=== PATIENT | male | born 1960 | race Caucasian/White ===

== ENCOUNTER 2018-08-21 00:28 | Outpatient (CLI) | payer BC ==
[2018-08-21 14:04] LABS: Hemoglobin 14.5 g/dL (14.0-18.0); Mean Corpuscular HGB CONC 32.6 g/dL (32.0-36.0); Mean Corpuscular Hemoglobin 32.3 pg (27.0-31.0); Mean Platelet Volume 7.7 fL (7.4-10.4); Platelet Count 200 thou/uL (130-400); Red Blood Cell (RBC) Count 4.49 mill/uL (4.70-6.10); White Blood Cell (WBC) Count 5.5 thou/uL (4.8-10.8)
[2018-08-21 14:13] LABS: Bilirubin Negative (Negative); Blood, Urine Negative (Negative); Clarity CLEAR (Clear); Glucose, Urine (Dipstick) 500 mg/dL (Negative); Leukocyte Negative (Negative); Nitrite Negative (Negative); Protein, Urine (Dipstick) Negative (Neg-Trace); Specific Gravity, Urine 1.017 (1.002-1.036); Urobilinogen 0.2 mg/dL (0.2-1.0)
[2018-08-21 14:19] LABS: Bacteria/HPF None Seen HPF (None Seen); Hyaline Casts/LPF 0-3 HYALINE CAST LPF (0-3 Hyaline); RBC/HPF 0-3 HPF (0-3); Squamous Epithelial None Seen HPF (0-3); WBC/HPF 0-3 HPF (0-3)
[2018-08-21 14:21] LABS: Anion Gap 10 mmol/L (10-20); BUN (Urea Nitrogen) 13 mg/dL (8.4-25.7); Calc. Creatinine Clearance 0 mL/min (70-130); Calcium 9.4 mg/dL (7.8-10.44); Carbon Dioxide 26 mmol/L (22-29); Chloride 104 mmol/L (98-107); Estimated GFR-MDRD Greater than 90; Glucose 219 mg/dL (70-105); Potassium 3.7 mmol/L (3.5-5.1); Sodium 136 mmol/L (136-145)
== END 2018-08-21 00:29 | disposition home or self-care (01) ==
LOC: LABBT 00:28
PROVIDERS: ATTEND Orthopaedic Surgery
DX: Z01.818 Encounter for other preprocedural examination (principal); Z96.652 Presence of left artificial knee joint
CPT/HCPCS: 80048; 81001; 85027; 85610; 86850; 86900; 86901; 87081; 93005; 93010

== ENCOUNTER 2018-08-21 13:00 | Inpatient (IN) | payer BC ==
--- NOTE | 2018-08-21 11:27 | HP ---
HISTORY OF PRESENT ILLNESS: This patient is a 58-year-old male with a long history of progressive degenerative arthritis of the left knee. He has had no recent injury. He has had previous arthroscopic surgery in the past with partial meniscectomies. Over the past several years, he has noticed progressive pain, which has persisted despite measures restricting activities, anti-inflammatory medications, and several cortisone injections. The pain is not interfering with day-to-day activities including walking, getting dressed, sleeping, and working. PAST HISTORY: The patient has had previous right total knee replacement in 12/2015. This was complicated by postoperative stiffness, which required manipulation and use of continuous passive motion machine, he subsequently had satisfactory results. He has no major medical problems. CURRENT MEDICATIONS: Include multivitamins, baby aspirin, and meloxicam. ALLERGIES: HE IS ALLERGIC TO PENICILLIN, WHICH CAUSES A RASH. FAMILY HISTORY: Otherwise unremarkable. SOCIAL HISTORY: Otherwise unremarkable. REVIEW OF SYSTEMS: Otherwise unremarkable. PHYSICAL EXAMINATION: GENERAL: A healthy male. HEENT: Unremarkable. NECK: Supple. CHEST: Clear. HEART: Regular rate and rhythm. ABDOMEN: Soft and nontender. RECTAL AND GENITAL: Deferred. EXTREMITIES: Pertinent findings related to his left knee. There is mild varus. There is medial joint line tenderness and a palpable Ivy cyst. There is crepitus with range of motion. There are healed arthroscopy puncture sites. Range of motion is 5 to 90 degrees and crepitus with range of motion. There is a left antalgic gait. There is no instability. Distal pulses are 2+. NEUROVASCULAR: Intact. DIAGNOSTIC STUDIES: X-rays of the left knee reveal [id number] collapse medially with tricompartment degenerative arthritis and a posterior osteocartilaginous loose body, probably within a Ivy cyst. IMPRESSION: 1. Posttraumatic degenerative arthritis, left knee. 2. Status post right total knee replacement. PLAN: Left total knee replacement. Because of his previous history with stiffness of the right knee, we will begin aggressive range of motion exercises and use of a continuous passive motion machine immediately in the postoperative period on his left knee. The nature of surgery, length, recovery, and potential complications such as infection, loss of motion, incomplete relief, thromboembolic phenomena, possible transfusion, and need for revision have been discussed in detail with the patient and his . Job ID: [id number]
[2018-08-25] MEDS ORDERED: Tranexamic Acid 1,000 MG/10 ML VIAL ONE ×2 (07:09→14:15)
[2018-08-25] MEDS ORDERED: Levofloxacin 500 mg/D5W 100 ml Premix Bag ONE (07:09)
[2018-08-25] MEDS ORDERED: Sodium Chloride 0.9% 100 ML ONE (07:09)
[2018-08-25] MEDS ORDERED: Vancomycin HCl 1.5 GM in Sodium Chloride 0.9% 250 ML 300 ML IVPB SCH ×2 (07:15→21:00)
[2018-08-25] MEDS ORDERED: Midazolam HCl 2 mg/2 ml Vial ONE (08:40)
[2018-08-25] MEDS ORDERED: Fentanyl 100 MCG/2 ML VIAL ONE ×3 (08:40→13:04)
[2018-08-25] MEDS ORDERED: Zolpidem Tartrate 5 MG TAB PO PRN ×2 (09:14→13:55)
[2018-08-25] MEDS ORDERED: traMADol HCl 50 MG TAB PO PRN ×2 (09:14→13:55)
[2018-08-25] MEDS ORDERED: Ondansetron PF 4 MG/2 ML Vial IVP PRN ×2 (09:14→13:55)
[2018-08-25] MEDS ORDERED: Fentanyl 100 MCG/2 ML VIAL IV PRN (09:14)
[2018-08-25] MEDS ORDERED: Promethazine HCl 25 MG/ML VIAL IM PRN ×2 (09:14→10:50)
[2018-08-25] MEDS ORDERED: HYDROcodone/Acetaminophen 10/325 mg Tablet PO PRN ×3 (09:14→13:55)
[2018-08-25] MEDS ORDERED: Ropivacaine HCl/PF 250 ML in Premix Bag 1 BAG NERVE BLCK SCH (09:14)
[2018-08-25] MEDS ORDERED: Bupivacaine/Epinephrine 0.25% 30 ML VIAL ONE (09:49)
[2018-08-25] MEDS ORDERED: PACU-Morphine 4MG/ML VIAL SLOW IVP PRN (10:50)
[2018-08-25] MEDS ORDERED: Ondansetron HCl/PF 4 MG/2 ML Vial IVP PRN (10:50)
[2018-08-25] MEDS ORDERED: Promethazine HCl 25 MG/ML VIAL SLOW IVP PRN ×2 (10:50→13:55)
[2018-08-25] MEDS ORDERED: HYDROmorphone 2 MG/ML VIAL SLOW IVP PRN (10:50)
[2018-08-25] MEDS ORDERED: Meperidine HCl/PF 25 MG/ML VIAL ONE (12:28)
[2018-08-25] MEDS ORDERED: Tranexamic Acid 1,000 MG in Sodium Chloride 0.9% 100 ML IVPB SCH ×2 (12:30→13:55)
[2018-08-25] MEDS ORDERED: Acetaminophen 325 MG TAB PO PRN (13:55)
[2018-08-25] MEDS ORDERED: Fentanyl 100 MCG/2 ML VIAL SLOW IVP PRN ×2 (13:55)
[2018-08-25] MEDS ORDERED: Ketorolac Tromethamine 30 MG/ML VIAL IVP SCH (14:00)
--- NOTE | 2018-08-25 14:01 | RAD ---
LEFT KNEE RADIOGRAPHS 2 VIWS: DATE: 08/25/2018. PROVIDED CLINICAL HISTORY: Postop. FINDINGS: Postoperative changes of left total knee arthroplasty are demonstrated. There is no evidence for fra cture or other acute osseous abnormality. Ossific focus posterior to the knee joint presumably refle cts intraarticular body within Ivy's cyst. Postoperative soft tissue gas is noted. IMPRESSION: As above. POS: [facility]
[2018-08-25] MEDS ORDERED: Aspirin 81 mg Enteric Coated Tablet PO SCH (14:15)
[2018-08-25] MEDS ORDERED: Ascorbic Acid 500 mg Chewable Tablet PO SCH (14:15)
[2018-08-25] MEDS ORDERED: Ropivacaine 0.5% HCl/PF (150 MG/30 ML VIAL) ONE (14:43)
[2018-08-25] MEDS ORDERED: Ropivacaine 0.2% HCl/PF (40 MG/20 ML VIAL) ONE (14:43)
[2018-08-25] MEDS ORDERED: Ondansetron PF 4 MG/2 ML Vial ONE (15:14)
[2018-08-25] MEDS ORDERED: Lidocaine 1% PF 5 ML VIAL ONE (15:14)
[2018-08-25] MEDS ORDERED: PROPOFOL 200 MG/20 ML VIAL ONE (15:14)
[2018-08-25] MEDS: Ketorolac Tromethamine 30 MG/ML VIAL IVP SCH ×2 (16:31→17:34)
--- NOTE | 2018-08-25 16:48 | OP ---
DATE OF PROCEDURE: 08/25/2018 ROTARY FURNACE TENDER: Luis Angel Cross PA-C ANESTHESIA: General plus adductor canal and posterior sciatic nerve block. PREOPERATIVE DIAGNOSIS: Degenerative arthritis, left knee. POSTOPERATIVE DIAGNOSIS: Degenerative arthritis, left knee. PROCEDURE PERFORMED: Left total knee replacement with computer-assisted navigation with cemented Maico triathlon components (#5 femoral component, #6 primary tibial base plate with 11 mm CS plastic insert, and S33 all plastic patellar component). DESCRIPTION OF PROCEDURE: After satisfactory anesthesia was induced in supine position, sequential compression device was placed on the nonoperative leg throughout the procedure. The left leg was then prepped and draped in routine sterile fashion. The knee was approached through a gently curved medial parapatellar incision, carried down through the subcutaneous tissues and bleeding points controlled with Bovie cautery. Medial parapatellar arthrotomy was performed of the patella, this was carried laterally and portions of the fat pad were excised for exposure. There was marked degenerative arthritis of the knee of all compartments with large areas of exposed bone. Meniscal remnants and osteophytes were removed. Using the MVP Interactive pinless navigation system and the appropriate guides, the distal femoral and proximal tibial articular surfaces were excised with an oscillating saw to accept the trial components. It was felt that #5 femoral component and #6 tibial base plate with 11 mm CS plastic insert gave appropriate size, fit, stability, and correction of the preoperative deformity. The patellar articular surface was excised to accept all plastic S33 patellar component. There was good range of motion and good patellar tracking. The trial components were removed. The knee was copiously irrigated with pulsatile lavage, and the bony surfaces thoroughly cleaned and dried. The permanent components were then cemented in a single stage using one package of cement premixed with 1 g of tobramycin powder. Excess cement was removed. There was again good fit and stability of components. The knee was again copiously irrigated. The medial retinaculum and quadriceps mechanism were closed with interrupted #2 Vicryl and a running #2 Quill. Subcutaneous tissues were closed with running 0 Quill suture and the skin closed with running subcuticular 3-0 Monoderm and SurgiSeal skin adhesive. A sterile bulky compressive dressing was applied and the tourniquet deflated for 83 minutes. The foot promptly pinked up, and a sequential compression device was placed on his operated leg. He was taken to recovery room in stable condition, where a continuous passive motion machine will be started. There were no apparent intraoperative complications. The estimated blood loss was less than 100 mL. Job ID: [id number]
[2018-08-25] MEDS: Sodium Chloride 0.9% 1,000 ML IV SCH (17:38)
[2018-08-25] MEDS: Aspirin 81 mg Enteric Coated Tablet PO SCH (20:22)
[2018-08-25] MEDS: HYDROcodone/Acetaminophen 10/325 mg Tablet PO PRN (21:54)
[2018-08-26] MEDS: diphenhydrAMINE 25 MG CAP PO PRN ×3 (00:14→17:30)
[2018-08-26] MEDS: Sodium Chloride 0.9% 1,000 ML IV SCH ×3 (00:26→20:05)
[2018-08-26] MEDS: Ketorolac Tromethamine 30 MG/ML VIAL IVP SCH ×4 (00:29→17:27)
[2018-08-26] MEDS: HYDROcodone/Acetaminophen 10/325 mg Tablet PO PRN ×3 (05:03→15:31)
[2018-08-26 07:23] LABS: Hemoglobin 12.9 g/dL (14.0-18.0); Mean Corpuscular HGB CONC 32.7 g/dL (32.0-36.0); Mean Corpuscular Hemoglobin 31.7 pg (27.0-31.0); Mean Corpuscular Volume 96.9 fL (78.0-98.0); Mean Platelet Volume 8.2 fL (7.4-10.4); Platelet Count 173 thou/uL (130-400); RBC Distribution Width 11.9 % (11.5-14.5); Red Blood Cell (RBC) Count 4.07 mill/uL (4.70-6.10); White Blood Cell (WBC) Count 9.1 thou/uL (4.8-10.8)
[2018-08-26] MEDS: Senokot S 8.6-50 MG TAB PO SCH ×2 (07:57→20:00)
[2018-08-26] MEDS: Ascorbic Acid 500 mg Chewable Tablet PO SCH (07:57)
[2018-08-26] MEDS: Ferrous Gluconate 324 MG TAB PO SCH ×2 (07:58→17:30)
[2018-08-26] MEDS: Aspirin 81 mg Enteric Coated Tablet PO SCH ×2 (07:58→19:59)
[2018-08-26] MEDS: Multivitamin W/ Minerals 1 TAB PO SCH (07:58)
[2018-08-26 12:32] VITALS: BMI 25.3
--- NOTE | 2018-08-26 12:42 | PRG ---
DATE OF SERVICE: 08/26/2018 SUBJECTIVE: Andres is a 58-year-old white male, postop day #1 from a left total knee arthroplasty by Dr. Lopez. He is doing relatively well and his pain is very well controlled presently. OBJECTIVE: VITAL SIGNS: Temperature is 99, pulse 98, respiratory rate is 16, O2 saturation on room air is 93%, and blood pressure is 135/69. GENERAL: He is alert and oriented to person, place, time, situation, and conversive and appropriate with examiner. His incision, there is no strike through. NEUROLOGIC: Then, he is neurovascular intact in the left lower extremity. LABORATORY DATA: Hemoglobin and hematocrit of 12.9 and 39.4. IMPRESSION: A 58-year-old white male, postop day #1 left total knee arthroplasty, doing relatively well. PLAN: Continue current care. Probable discharge tomorrow. Job ID: [id number]
[2018-08-26] MEDS: traMADol HCl 50 MG TAB PO PRN (20:00)
[2018-08-27] MEDS: Ketorolac Tromethamine 30 MG/ML VIAL IVP SCH ×2 (00:49→06:19)
[2018-08-27] MEDS: traMADol HCl 50 MG TAB PO PRN ×2 (02:17→08:23)
[2018-08-27] MEDS: Sodium Chloride 0.9% 1,000 ML IV SCH (05:22)
[2018-08-27 08:10] VITALS: TEMP 98
[2018-08-27] MEDS: Ferrous Gluconate 324 MG TAB PO SCH (08:25)
[2018-08-27] MEDS: Ascorbic Acid 500 mg Chewable Tablet PO SCH (08:25)
[2018-08-27] MEDS: Multivitamin W/ Minerals 1 TAB PO SCH (08:25)
[2018-08-27] MEDS: Aspirin 81 mg Enteric Coated Tablet PO SCH (08:25)
[2018-08-27] MEDS: Senokot S 8.6-50 MG TAB PO SCH (08:25)
[2018-08-27 11:29] VITALS: BP 116/65
[2018-08-27] MEDS: HYDROcodone/Acetaminophen 10/325 mg Tablet PO PRN (14:16)
== END 2018-08-27 15:45 | disposition home or self-care (01) | DRG 470 ==
LOC: SURG A 08-25 06:29 → SURG B 08-25 13:28
PROVIDERS: ADMIT Orthopaedic Surgery; ATTEND Orthopaedic Surgery
PROC: 0SRD0J9 Replacement of Left Knee Joint with Synthetic Substitute, Cemented, Open Approach (ICD-10-PCS; principal; 2018-08-25)
DX: M17.12 Unilateral primary osteoarthritis, left knee (principal); Z96.651 Presence of right artificial knee joint; Z88.0 Allergy status to penicillin
CPT/HCPCS: 36415; 36416; 85027; C1713; C1776; J1885; J1956; J2001; J2175; J2250; J2405; J2704; J2795; J3010; J3370; J7050; Q0163

== ENCOUNTER 2022-09-06 11:15 | Inpatient (IN) | payer BC ==
[2022-09-11] MEDS ORDERED: Tranexamic Acid 1,000 MG/10 ML VIAL ONE (09:07)
[2022-09-11] MEDS ORDERED: Sodium Chloride 0.9% 100 ML ONE ×2 (09:07→11:13)
[2022-09-11] MEDS ORDERED: Midazolam HCl 2 mg/2 ml Vial ONE ×2 (10:55→16:45)
[2022-09-11] MEDS ORDERED: FENTANYL 50 MCG/ML 1 ML VIAL ONE ×2 (10:55→16:46)
[2022-09-11] MEDS ORDERED: Bupivacaine PF 0.5% 30 ML VIAL ONE ×3 (10:55→16:46)
[2022-09-11] MEDS ORDERED: Promethazine HCl 25 MG/ML VIAL IM PRN (11:06)
[2022-09-11] MEDS ORDERED: diphenhydrAMINE 25 MG CAP PO PRN (11:06)
[2022-09-11] MEDS ORDERED: Ondansetron PF 4 MG/2 ML Vial IVP PRN (11:06)
[2022-09-11] MEDS ORDERED: Fentanyl 100 MCG/2 ML VIAL SLOW IVP PRN ×2 (11:06)
[2022-09-11] MEDS ORDERED: Acetaminophen 325 MG TAB PO PRN (11:06)
[2022-09-11] MEDS ORDERED: Zolpidem Tartrate 5 MG TAB PO PRN (11:06)
[2022-09-11] MEDS ORDERED: HYDROcodone/Acetaminophen 10/325 mg Tablet PO PRN ×2 (11:06)
[2022-09-11] MEDS ORDERED: Propofol 500 MG/50 ML VIAL ONE ×2 (11:07→12:16)
[2022-09-11] MEDS ORDERED: EPINEPHrine 1 MG/10 ML Abboject SYRINGE ONE (11:08)
[2022-09-11] MEDS ORDERED: CEFAZOLIN 2 GM VIAL ONE (11:13)
[2022-09-11] MEDS ORDERED: EPINEPHrine 1 MG/ML AMP ONE (11:17)
[2022-09-11] MEDS ORDERED: Bupivacaine 0.75% W/DEXTROSE 8.25% 2 ML AMP ONE (11:17)
[2022-09-11] MEDS ORDERED: Lidocaine 1% PF 5 ML VIAL ONE ×2 (11:32→16:46)
[2022-09-11] MEDS ORDERED: PROPOFOL 200 MG/20 ML VIAL ONE (11:32)
[2022-09-11] MEDS ORDERED: Ropivacaine 0.2% 550 ML 550 ML NERVE BLCK SCH (11:45)
[2022-09-11] MEDS ORDERED: traMADol HCl 50 MG TAB PO PRN (11:45)
[2022-09-11] MEDS ORDERED: HYDROmorphone 2 MG/ML VIAL SLOW IVP PRN (12:28)
[2022-09-11] MEDS ORDERED: Meperidine HCl/PF 25 MG/ML VIAL SLOW IVP PRN (12:28)
[2022-09-11] MEDS ORDERED: Ondansetron HCl/PF 4 MG/2 ML Vial IVP PRN (12:28)
[2022-09-11] MEDS ORDERED: Ketorolac Tromethamine 30 MG/ML VIAL IVP PRN (12:34)
[2022-09-11] MEDS ORDERED: HYDROmorphone 2 MG/ML VIAL ONE (13:16)
[2022-09-11] MEDS ORDERED: Ketorolac Tromethamine 30 MG/ML VIAL ONE (14:30)
[2022-09-11] MEDS: Ketorolac Tromethamine 30 MG/ML VIAL IVP SCH ×2 (14:59→18:01)
[2022-09-11 15:54] VITALS: BMI 29.7
[2022-09-11] MEDS: CEFAZOLIN 2 GM in Sodium Chloride 0.9% 100 ML IVPB SCH (18:01)
[2022-09-11] MEDS: Sodium Chloride 0.9% 1,000 ML IV SCH (18:30)
[2022-09-11] MEDS: traMADol HCl 50 MG TAB PO PRN (21:02)
[2022-09-11] MEDS: Aspirin 81 mg Enteric Coated Tablet PO SCH (21:04)
[2022-09-11] MEDS: Rosuvastatin 10 MG TAB PO SCH (21:04)
[2022-09-11] MEDS: Senokot S 8.6-50 MG TAB PO SCH (21:04)
[2022-09-11] MEDS: Ferrous Gluconate 324 MG TAB PO SCH (21:04)
[2022-09-12] MEDS: Ketorolac Tromethamine 30 MG/ML VIAL IVP SCH ×5 (00:36→23:32)
[2022-09-12] MEDS: CEFAZOLIN 2 GM in Sodium Chloride 0.9% 100 ML IVPB SCH (04:06)
[2022-09-12] MEDS: Sodium Chloride 0.9% 1,000 ML IV SCH ×3 (05:02→16:50)
[2022-09-12] MEDS: traMADol HCl 50 MG TAB PO PRN ×3 (05:30→17:00)
[2022-09-12 06:57] LABS: Hemoglobin 11.2 g/dL (14.0-18.0); Mean Corpuscular HGB CONC 34.3 g/dL (32.0-36.0); Mean Corpuscular Hemoglobin 33.3 pg (27.0-31.0); Mean Corpuscular Volume 96.9 fl (78.0-98.0); Mean Platelet Volume 8.3 fL (7.4-10.4); Platelet Count 137 10x3/uL (130-400); RBC Distribution Width 11.9 % (11.5-14.5); Red Blood Cell (RBC) Count 3.36 mill/uL (4.70-6.10); White Blood Cell (WBC) Count 6.3 10x3/uL (4.8-10.8)
[2022-09-12] MEDS: Multivitamin W/ Minerals 1 TAB PO SCH (08:15)
[2022-09-12] MEDS: Senokot S 8.6-50 MG TAB PO SCH ×2 (08:17→21:07)
[2022-09-12] MEDS: Ferrous Gluconate 324 MG TAB PO SCH ×2 (08:17→21:07)
[2022-09-12] MEDS: Cholecalciferol 1,000 UNITS (25 MCG) TAB PO SCH (08:17)
[2022-09-12] MEDS: Aspirin 81 mg Enteric Coated Tablet PO SCH ×2 (08:17→21:07)
[2022-09-12] MEDS: Polyethylene Glycol 3350 17 GM Packet PO SCH (17:02)
[2022-09-12] MEDS: Rosuvastatin 10 MG TAB PO SCH (21:07)
[2022-09-13] MEDS: Sodium Chloride 0.9% 1,000 ML IV SCH (03:04)
[2022-09-13] MEDS: Ketorolac Tromethamine 30 MG/ML VIAL IVP SCH (05:35)
[2022-09-13 05:47] LABS: Hemoglobin 10.3 g/dL (14.0-18.0); Mean Corpuscular Hemoglobin 31.8 pg (27.0-31.0); Mean Corpuscular Volume 96.3 fl (78.0-98.0); Platelet Count 131 10x3/uL (130-400); RBC Distribution Width 11.7 % (11.5-14.5); Red Blood Cell (RBC) Count 3.23 mill/uL (4.70-6.10); White Blood Cell (WBC) Count 6.5 10x3/uL (4.8-10.8)
[2022-09-13] MEDS: Polyethylene Glycol 3350 17 GM Packet PO SCH (08:10)
[2022-09-13] MEDS: Ferrous Gluconate 324 MG TAB PO SCH (08:10)
[2022-09-13] MEDS: Aspirin 81 mg Enteric Coated Tablet PO SCH (08:10)
[2022-09-13] MEDS: Cholecalciferol 1,000 UNITS (25 MCG) TAB PO SCH (08:11)
[2022-09-13] MEDS: Multivitamin W/ Minerals 1 TAB PO SCH (08:11)
[2022-09-13] MEDS: Senokot S 8.6-50 MG TAB PO SCH (08:11)
[2022-09-13] MEDS ORDERED: Ascorbic Acid 500 mg Chewable Tablet PO SCH (09:00)
[2022-09-13 09:08] VITALS: BP 139/62; TEMP 97.7
[2022-09-13] MEDS: traMADol HCl 50 MG TAB PO PRN (10:07)
[2022-09-14] MEDS ORDERED: Meloxicam 15 MG TAB PO SCH (09:00)
== END 2022-09-13 11:00 | disposition home or self-care (01) | DRG 468 ==
LOC: SURG A 09-11 08:33 → SJJU 09-11 15:29
PROVIDERS: ADMIT Orthopaedic Surgery; ATTEND Orthopaedic Surgery
PROC: 0SRW0JA Replacement of Left Knee Joint, Tibial Surface with Synthetic Substitute, Uncemented, Open Approach (ICD-10-PCS; principal; 2022-09-11)
PROC: 0SPW0JZ Removal of Synthetic Substitute from Left Knee Joint, Tibial Surface, Open Approach (ICD-10-PCS; 2022-09-11)
PROC: 3E0T3BZ Introduction of Anesthetic Agent into Peripheral Nerves and Plexi, Percutaneous Approach (ICD-10-PCS; 2022-09-11)
DX: T84.013A Broken internal left knee prosthesis, initial encounter (principal); Y83.1 Surgical operation with implant of artificial internal device as the cause of abnormal reaction of the patient, or of later complication, without mention of misadventure at the time of the procedure; E78.00 Pure hypercholesterolemia, unspecified; Z90.49 Acquired absence of other specified parts of digestive tract; Z98.890 Other specified postprocedural states; Z87.891 Personal history of nicotine dependence; Z79.899 Other long term (current) drug therapy; Z88.0 Allergy status to penicillin; Z79.82 Long term (current) use of aspirin; Z88.1 Allergy status to other antibiotic agents; Z88.8 Allergy status to other drugs, medicaments and biological substances
CPT/HCPCS: 36415; 85027; A4306; C1713; C1776; J0171; J1170; J1885; J2250; J2704; J2795; J3010; J3490; S0020

== ENCOUNTER 2022-09-06 11:31 | Outpatient (CLI) | payer BC ==
[2022-09-06 12:45] LABS: Hemoglobin 14.1 g/dL (13.5-17.5); Mean Corpuscular HGB CONC 33.1 g/dL (32.0-36.0); Mean Corpuscular Hemoglobin 30.7 pg (27.0-33.0); Mean Corpuscular Volume 92.8 fl (81.2-95.1); Mean Platelet Volume 9.9 fl (7.4-10.4); Platelet Count 200 10x3/uL (150-450); RBC Distribution Width 12.5 % (11.5-14.5); Red Blood Cell (RBC) Count 4.59 10x6/uL (4.32-5.72); White Blood Cell (WBC) Count 5.2 10x3/uL (3.5-10.5)
[2022-09-06 13:04] LABS: INR-International Normal Ratio 0.9; Prothrombin Time 9.8 sec (9.5-12.1)
[2022-09-06 13:07] LABS: Anion Gap 14 mmol/L (10-20); BUN (Urea Nitrogen) 17 mg/dL (8.4-25.7); Calc. Creatinine Clearance 0 mL/min (70-130); Calcium 9.6 mg/dL (7.8-10.44); Carbon Dioxide 25 mmol/L (22-29); Chloride 104 mmol/L (98-107); Estimated GFR 101; Glucose 182 mg/dL (70-105); Potassium 4.6 mmol/L (3.5-5.1); Sodium 138 mmol/L (136-145)
== END 2022-09-06 11:32 | disposition home or self-care (01) ==
LOC: LABBT 11:31
PROVIDERS: ATTEND Orthopaedic Surgery
DX: Z01.818 Encounter for other preprocedural examination (principal); T84.018A Broken internal joint prosthesis, other site, initial encounter; Z47.1 Aftercare following joint replacement surgery; Z96.652 Presence of left artificial knee joint
CPT/HCPCS: 80048; 85027; 85610; 87070; 87081; 87205; 93005; 93010